=== PATIENT | female | born 1985 | race Caucasian/White ===

== ENCOUNTER 2016-06-07 15:17 | Emergency (ER) | payer OTHER ==
[~2016-06-07] VITALS: Ht 175.3 cm; Wt 72.6 kg
[2016-06-07 15:27] VITALS: BP 141/82
[2016-06-07] MEDS ORDERED: clonazePAM 1 MG TABLET PO ONE (16:30)
[2016-06-07] MEDS ORDERED: clonazePAM 1 MG TABLET ONE (16:38)
== END 2016-06-07 17:33 | disposition home or self-care (01) ==
LOC: ER 15:19
DX: F41.9 Anxiety disorder, unspecified (principal); F13.239 Sedative, hypnotic or anxiolytic dependence with withdrawal, unspecified; F32.9 Major depressive disorder, single episode, unspecified
CPT/HCPCS: 93005; 99284; A4606; Z7610

== ENCOUNTER 2021-01-24 13:31 | Inpatient (IN) | payer OTHER ==
[~2021-01-24] VITALS: Ht 160 cm; Wt 65.8 kg
--- NOTE | 2021-01-24 13:31 | NUR ---
PT BIB SELF C/O BILATERAL LOWER EXTREMITY SWELLING FOR 1 MONTH. PT IS AAOX4, NOT IN RESPIRATORY DISTRESS, HOOKED TO PLANT SENIOR MANAGER, KEPT RESTED AND COMFORTABLE. WILL CONTINUE TO MONITOR.
--- NOTE | 2021-01-24 13:50 | NUR ---
IV LINE ESTABLISHED BLOOD DRAWN AND SENT TO LAB.
--- NOTE | 2021-01-24 14:12 | NUR ---
AT BEDSIDE FOR EVAL.
--- NOTE | 2021-01-24 14:25 | NUR ---
URINE SPECIMEN COLLECTED AND SENT TO LAB.
[2021-01-24 14:47] LABS: BASOPHILS # (AUTO) 0.1 K/uL (0.0-0.2); BASOPHILS % (AUTO) 1.2 % (0.0-2.0); HEMATOCRIT 37 % (33-45); HEMOGLOBIN 11.2 g/dL (11.5-14.8); LYMPHOCYTES # (AUTO) 1.1 K/uL (0.8-4.8); LYMPHOCYTES % (AUTO) 11.1 % (20.0-44.0); MEAN CORPUSCULAR HGB CONC 30 g/dl (31.0-36.0); MEAN CORPUSCULAR VOLUME 69 fL (82-100); MONOCYTES # (AUTO) 0.7 K/uL (0.1-1.30); MONOCYTES % (AUTO) 7.1 % (2.0-12.0); NEUTROPHILS # (AUTO) 7.8 K/uL (1.8-8.9); NEUTROPHILS % (AUTO) 79.6 % (43.0-81.0); PLATELET COUNT (AUTO) 488 K/uL (150-450); RED BLOOD CELL COUNT(AUTO) 5.39 MIL/uL (4.0-5.2); WHITE BLOOD COUNT (AUTO) 9.8 K/uL (4.3-11.0)
[2021-01-24 14:53] LABS: BILIRUBIN,URINE SMALL (NEGATIVE); COLOR,URINE YELLOW (YELLOW); LEUKOCYTE ESTERASE ,URINE Trace (NEGATIVE); NITRITE, URINE Negative (NEGATIVE); PH,URINE 6.5 (5.0-8.0); PROTEIN,URINE >=300 mg/dl (NEGATIVE); UGLUCOSE Negative (NEGATIVE)
[2021-01-24 15:12] LABS: BACTERIA,URINE 2+ /HPF (None Seen); MUCUS,URINE Moderate /LPF (None Seen); SQUAMOUS EPITHELIAL CELL,UR Many /HPF (None Seen)
--- NOTE | 2021-01-24 15:13 | NUR ---
DIRECTOR GLOBAL DEVELOPMENT AT BEDSIDE FOR US.
[2021-01-24 15:14] LABS: CALCIUM, SERUM 8.4 mg/dL (8.5-10.1); CREATININE 1.4 mg/dL (0.6-1.3); POTASSIUM 3.1 mmol/L (3.5-5.1)
[2021-01-24 15:27] LABS: ALBUMIN 2.8 g/dL (3.4-5.0); BILIRUBIN,DIRECT 0.2 mg/dL (0.0-0.2); BILIRUBIN,TOTAL 0.5 mg/dL (0.2-1.0); TOTAL PROTEIN, SERUM 6.7 g/dL (6.4-8.2)
[2021-01-24] MEDS ORDERED: POTASSIUM CHLORIDE 20 MEQ TAB.PRT.SR PO ONE ×2 (15:30→15:35)
[2021-01-24] MEDS ORDERED: Magnesium 1 GM/2 ML VIAL IV ONE (15:30)
[2021-01-24] MEDS ORDERED: Magnesium 1GM/D5W 100ML PREMIX 200 ML IV ONE (15:35)
[2021-01-24] MEDS ORDERED: ASPIRIN 325 MG TABLET ONE (15:36)
[2021-01-24] MEDS ORDERED: ASPIRIN 325 MG TABLET PO ONE (16:00)
[2021-01-24] MEDS ORDERED: Magnesium 1GM/D5W 100ML PREMIX PIGGYBACK IV ONE (16:00)
--- NOTE | 2021-01-24 16:25 | NUR ---
COVID SPECIMEN OBTAINED AND SENT TO LAB.
--- NOTE | 2021-01-24 16:47 | NUR ---
MOVE SHEET TURNED IN.
[2021-01-24] MEDS ORDERED: hydrALAZINE HCL IV 20 MG VIAL ONE (18:43)
[2021-01-24 19:00] LABS: EOSINOPHILS % (MANUAL) 1 % (0-4); LYMPHOCYTES % (MANUAL) 4 % (16-48); MONOCYTES % (MANUAL) 4 % (0-11.0); NEUTROPHILS % (MANUAL) 91 (42-76)
[2021-01-24] MEDS ORDERED: hydrALAZINE HCL IV 20 MG VIAL IV ONE (19:00)
--- NOTE | 2021-01-24 19:16 | NUR ---
PAGED DR. YUAN. CURRENTLY ON THE PHONE WITH ER DOCTOR.
[2021-01-24] MEDS ORDERED: hydrALAZINE HCL 10 MG TABLET PO PRN (20:30)
[2021-01-24] MEDS ORDERED: FUROSEMIDE 40 MG/4 ML VIAL IV ONE (20:30)
--- NOTE | 2021-01-24 20:52 | NUR ---
REPORT GIVEN TO RN FOR APOORVA
[2021-01-24 22:00] VITALS: BP 148/96
--- NOTE | 2021-01-24 22:11 | NUR ---
TELE/THREADER NOTE RECEIVED PT FROM Mary VIA LAZARO TO [phone], ACCOMPANIED BY ATTENDING PATHOLOGIST. DX: PERIPHERAL EDEMA. CC: BILATERAL LOWER EXTREMITIES EDEMA X1 MONTH, NOT TAKING BP MEDS. RESPIRATIONS EVEN/UNLABORED, ON ROOM AIR. BLE EDEMA FROM THIGH TO FT, PITTING +2. PT STATES IT'S ONLY PAINFUL WHEN TOUCHED, OTHERWISE, SHE DENIES ANY PAIN AT THIS TIME. PT AMBULATED TO BR TO VOID. STEADY GAIT. PT ORIENTED TO ROOM, STAFF AND POLICIES. BELONGINGS CHECKED. CONNECTED TO TELE MONITOR, READING SINUS TACH, HR 119. PT IN NO ACUTE DISTRESS. SAFETY MEASURES IN PLACE, BED IN LOWEST LOCKED POSITION S/R UP X2, CALL LIGHT WITHIN REACH. WILL CONT TO MONITOR.
[2021-01-24] MEDS: ACETAMINOPHEN 325 MG TABLET PO PRN (22:29)
[2021-01-24] MEDS: CARVEDILOL 6.25 MG TABLET PO SCH (22:30)
[2021-01-24 22:46] VITALS: BP 148/96
--- NOTE | 2021-01-24 23:17 | NUR ---
RN NOTE RM CHANGE TO [id number]
[2021-01-25] VITALS: BP 106/59
[2021-01-25] MEDS: ZOLPIDEM TARTRATE 5 MG TABLET PO PRN ×2 (03:13→23:10)
[2021-01-25 04:00] VITALS: BP 120/75
[2021-01-25 06:22] LABS: CALCIUM, SERUM 7.8 mg/dL (8.5-10.1); CREATININE 1.2 mg/dL (0.6-1.3); POTASSIUM 3.3 mmol/L (3.5-5.1)
[2021-01-25 06:26] LABS: ALBUMIN 2.3 g/dL (3.4-5.0); BILIRUBIN,TOTAL 0.3 mg/dL (0.2-1.0); MAGNESIUM 1.6 mg/dL (1.8-2.4); TOTAL PROTEIN, SERUM 5.6 g/dL (6.4-8.2)
[2021-01-25 06:28] LABS: BASOPHILS # (AUTO) 0.1 K/uL (0.0-0.2); BASOPHILS % (AUTO) 1.7 % (0.0-2.0); EOSINOPHILS % (AUTO) 1.8 % (0.0-6.0); HEMATOCRIT 32 % (33-45); HEMOGLOBIN 9.5 g/dL (11.5-14.8); LYMPHOCYTES # (AUTO) 0.8 K/uL (0.8-4.8); LYMPHOCYTES % (AUTO) 11.1 % (20.0-44.0); MEAN CORPUSCULAR HGB CONC 30 g/dl (31.0-36.0); MEAN CORPUSCULAR VOLUME 71 fL (82-100); MONOCYTES # (AUTO) 0.8 K/uL (0.1-1.30); MONOCYTES % (AUTO) 11.2 % (2.0-12.0); NEUTROPHILS % (AUTO) 74.2 % (43.0-81.0); PLATELET COUNT (AUTO) 380 K/uL (150-450); WHITE BLOOD COUNT (AUTO) 6.8 K/uL (4.3-11.0)
--- NOTE | 2021-01-25 06:51 | NUR ---
TELE/RN CLOSING NOTE PT RESTING IN BED, EASILY AROUSABLE TO STIMULI. DENIES PAIN/DISCOMFORT. NO SOB. TELE MONITOR READING SR, HR 97. NO ACUTE EVENTS DURING THE NIGHT. SAFETY MEASURES MAINTAINED. ALL NEEDS ATTENDED TO.
[2021-01-25 07:50] LABS: LYMPHOCYTES % (MANUAL) 15 % (16-48); MONOCYTES % (MANUAL) 8 % (0-11.0); NEUTROPHILS % (MANUAL) 77 (42-76)
--- NOTE | 2021-01-25 07:55 | NUR ---
TUB WASH OPERATOR OPENING NOTES RECEIVED PATIENT IN BED ALERT/ORIENTED X 4.NOT IN ANY RESPIRATORY DISTRESS.DENIES PAIN AND DISCOMFORT AT THIS TIME.EDEMA ON BLE'S SUBSIDING AND PATIENT VERVALIZED THAT IT LOOKS BETTER AT THIS TIME.WE WILL CONTINUE TO MONITOR
[2021-01-25] MEDS: CARVEDILOL 6.25 MG TABLET PO SCH ×2 (08:33→16:16)
[2021-01-25] MEDS: POTASSIUM CHLORIDE 20 MEQ TAB.PRT.SR PO SCH ×4 (08:35→11:12)
[2021-01-25] MEDS: ENOXAPARIN SODIUM 40 MG/0.4 ML DISP.SYRIN SQ SCH (08:40)
[2021-01-25] MEDS: FUROSEMIDE 40 MG/4 ML VIAL IV SCH ×3 (08:45→16:15)
[2021-01-25 08:57] LABS: IRON, SERUM 13 ug/dl (50-175); TOTAL IRON BINDING CAPACITY 433 ug/dl (250-450)
[2021-01-25] MEDS ORDERED: POTASSIUM CHLORIDE 20 MEQ TAB.PRT.SR PO ONE ×2 (09:00→11:30)
[2021-01-25 09:10] LABS: FERRITIN 17 ng/mL (8-388)
[2021-01-25 09:51] VITALS: BP 135/92
[2021-01-25] MEDS ORDERED: MAGNESIUM OXIDE 400 MG TABLET PO ONE (10:30)
[2021-01-25] MEDS ORDERED: Magnesium 1GM/D5W 100ML PREMIX 100 ML IV SCH (11:30)
[2021-01-25 12:00] VITALS: BP 133/78
[2021-01-25] MEDS: LOSARTAN POTASSIUM 50 MG TABLET PO SCH (12:21)
[2021-01-25] MEDS: CEFTRIAXONE 1 G in IV D5W 50 ML IV SCH (13:19)
[2021-01-25] MEDS: SOD FERRIC GLUC 125 MG in IV NS 0.9% 100 ML IV SCH (14:52)
[2021-01-25 16:11] VITALS: BP 119/71
--- NOTE | 2021-01-25 19:15 | NUR ---
LIFE EDUCATOR OPENING NOTES: RECEIVED PATIENT IN BED, AWAKE, A/O X4. NO S/S OF DISTRESS NOTED. NO COMPLAIN OF PAIN. CALL LIGHT WITHIN REACH. BED IN LOWEST AND LOCKED POSITION.
--- NOTE | 2021-01-25 19:22 | NUR ---
TACKING MACHINE OPERATOR CLOSING NOTES: PATIENT IN BED,AWAKE,NOT IN ANY DISTRESS.CONTINENT BOTH BOWEL AND BLADDER AND AMBULATES TO THE BATHROOM,ALL NEEDS MET,MD'S ORDER GIVEN.DENIES PAIN THIS SHIFT.KEPT COMFORTABLE THROUGHOUT THIS SHIFT.SAFETY MEASURES MAINTAINED.CALL LIGHT WITHIN REACH.WILL ENDORSE CONTINUITY OF CARE TO INCOMING SHIFT.
[2021-01-25 20:45] VITALS: BP 130/82
[2021-01-26 00:17] VITALS: BP 132/79
[2021-01-26 04:00] VITALS: BP 135/77
[2021-01-26 06:46] LABS: BASOPHILS # (AUTO) 0.1 K/uL (0.0-0.2); BASOPHILS % (AUTO) 1.4 % (0.0-2.0); EOSINOPHILS % (AUTO) 2.5 % (0.0-6.0); HEMATOCRIT 34 % (33-45); HEMOGLOBIN 10.4 g/dL (11.5-14.8); LYMPHOCYTES # (AUTO) 0.9 K/uL (0.8-4.8); LYMPHOCYTES % (AUTO) 13.3 % (20.0-44.0); MEAN CORPUSCULAR HGB CONC 31 g/dl (31.0-36.0); MEAN CORPUSCULAR VOLUME 70 fL (82-100); MONOCYTES # (AUTO) 0.9 K/uL (0.1-1.30); MONOCYTES % (AUTO) 13.9 % (2.0-12.0); NEUTROPHILS # (AUTO) 4.7 K/uL (1.8-8.9); NEUTROPHILS % (AUTO) 68.9 % (43.0-81.0); PLATELET COUNT (AUTO) 445 K/uL (150-450); RED BLOOD CELL COUNT(AUTO) 4.89 MIL/uL (4.0-5.2); WHITE BLOOD COUNT (AUTO) 6.8 K/uL (4.3-11.0)
--- NOTE | 2021-01-26 07:00 | NUR ---
TRUCK DRIVER TEAMSTER OPENING NOTES: PATIENT IN BED AWAKE,ALERT/ORIENTED X 4.NOT IN ANY DISTRESS,DENIES PAIN AND DISCOMFORT,CALL LIGHT WITHIN REACH. EDEMA BLE'S STILL NOTED,CONTINUE ON DAILY WEIGHTS WHICH IS TRENDING LOW. ON MEDICATIONS ORDERED AND WILL CONTINUE TO MONITOR.
[2021-01-26 07:05] LABS: ALBUMIN 2.4 g/dL (3.4-5.0); BILIRUBIN,TOTAL 0.3 mg/dL (0.2-1.0); CALCIUM, SERUM 8.5 mg/dL (8.5-10.1); CREATININE 1.2 mg/dL (0.6-1.3); MAGNESIUM 1.7 mg/dL (1.8-2.4); PHOSPHORUS 4.2 mg/dL (2.5-4.9); POTASSIUM 4.1 mmol/L (3.5-5.1); TOTAL PROTEIN, SERUM 5.8 g/dL (6.4-8.2)
[2021-01-26 08:00] VITALS: BP 139/109
[2021-01-26] MEDS: Magnesium 1GM/D5W 100ML PREMIX 100 ML IV SCH ×2 (08:30→09:30)
[2021-01-26] MEDS: LOSARTAN POTASSIUM 50 MG TABLET PO SCH (08:33)
[2021-01-26] MEDS: CARVEDILOL 6.25 MG TABLET PO SCH ×2 (08:34→16:31)
[2021-01-26] MEDS: ENOXAPARIN SODIUM 40 MG/0.4 ML DISP.SYRIN SQ SCH (08:35)
[2021-01-26] MEDS: POTASSIUM CHLORIDE 20 MEQ TAB.PRT.SR PO SCH ×2 (08:53→11:13)
[2021-01-26] MEDS: FUROSEMIDE 40 MG/4 ML VIAL IV SCH ×3 (09:38→16:27)
[2021-01-26] MEDS: METOPROLOL TARTRATE INJ 5 MG/5 ML AMPUL IVP PRN ×10 (11:50→14:35)
[2021-01-26 12:00] VITALS: BP 114/66
[2021-01-26] MEDS ORDERED: Magnesium 1GM/D5W 100ML PREMIX 100 ML IV SCH (12:00)
[2021-01-26] MEDS ORDERED: METOPROLOL TARTRATE INJ 5 MG/5 ML AMPUL ONE ×2 (13:34→14:12)
[2021-01-26] MEDS ORDERED: CT SWABBABLE VALVE TRANS SET 1 EA INFUS.SET MC ONE (13:34)
[2021-01-26] MEDS ORDERED: IOHEXOL-350 100 ML VIAL IV ONE (13:34)
[2021-01-26] MEDS ORDERED: NITROGLYCERIN 0.4 MG/TAB BOTTLE ONE (13:34)
[2021-01-26] MEDS ORDERED: IV NS 0.9% 250 ML IV ONE (13:35)
[2021-01-26] MEDS ORDERED: NITROGLYCERIN 0.4 MG/TAB BOTTLE SL ONE (14:00)
--- NOTE | 2021-01-26 14:37 | NUR ---
pt consented to CTA heart with contrast; all questions answered, denies CP or SOB; given Metoprolol 5mg IVP every 5 minutes x 10 doses and NTG SL 0.04 mg; Tolerated procedure; VSS; report given to floor RN at bedside; sent back to floor via wheelchair
[2021-01-26] MEDS: CEFTRIAXONE 1 G in IV D5W 50 ML IV SCH (15:13)
[2021-01-26] MEDS: SOD FERRIC GLUC 125 MG in IV NS 0.9% 100 ML IV SCH (15:14)
--- NOTE | 2021-01-26 15:15 | NUR ---
FERRLICET GIVEN LATE,PATIENT WENT FOR MRI
[2021-01-26] MEDS: ACETAMINOPHEN 325 MG TABLET PO PRN (15:42)
[2021-01-26 16:00] VITALS: BP 137/84
--- NOTE | 2021-01-26 19:10 | NUR ---
WEBMETHODS CONSULTANT OPENING NOTES: RECEIVED PATIENT IN BED, AWAKE, A/O X4. NO S/S OF DISTRESS NOTED. NO COMPLAIN OF PAIN. CALL LIGHT WITHIN REACH. BED IN LOWEST AND LOCKED POSITION. SINUS 87.
[2021-01-26 20:04] VITALS: BP 123/80
[2021-01-26] MEDS: ZOLPIDEM TARTRATE 5 MG TABLET PO PRN (23:32)
[2021-01-27] VITALS (8 sets, daily range): BP systolic 103–142; BP diastolic 65–96
--- NOTE | 2021-01-27 00:42 | NUR ---
NPO POST MN,PATIENT AWARE. SIGN PLACED IN THE DOOR.
[2021-01-27 06:29] LABS: BASOPHILS # (AUTO) 0.1 K/uL (0.0-0.2); BASOPHILS % (AUTO) 1.2 % (0.0-2.0); EOSINOPHILS % (AUTO) 2.3 % (0.0-6.0); HEMATOCRIT 33 % (33-45); LYMPHOCYTES # (AUTO) 0.9 K/uL (0.8-4.8); LYMPHOCYTES % (AUTO) 9.6 % (20.0-44.0); MEAN CORPUSCULAR HGB CONC 30 g/dl (31.0-36.0); MEAN CORPUSCULAR VOLUME 70 fL (82-100); MONOCYTES # (AUTO) 1.2 K/uL (0.1-1.30); MONOCYTES % (AUTO) 13.2 % (2.0-12.0); NEUTROPHILS # (AUTO) 6.8 K/uL (1.8-8.9); NEUTROPHILS % (AUTO) 73.7 % (43.0-81.0); PLATELET COUNT (AUTO) 415 K/uL (150-450); RED BLOOD CELL COUNT(AUTO) 4.68 MIL/uL (4.0-5.2); WHITE BLOOD COUNT (AUTO) 9.2 K/uL (4.3-11.0)
[2021-01-27 06:50] LABS: ALBUMIN 2.4 g/dL (3.4-5.0); BILIRUBIN,TOTAL 0.3 mg/dL (0.2-1.0); CALCIUM, SERUM 8.7 mg/dL (8.5-10.1); MAGNESIUM 1.8 mg/dL (1.8-2.4); PHOSPHORUS 5.1 mg/dL (2.5-4.9); POTASSIUM 3.9 mmol/L (3.5-5.1)
--- NOTE | 2021-01-27 06:55 | NUR ---
weight= 145.7LBS.
--- NOTE | 2021-01-27 07:10 | NUR ---
WHANAU SUPPORT WORKER OPENING NOTES RECEIVED PATIENT IN BED AWAKE, ALERT/ORIENTED X 4. NOT IN ANY DISTRESS, DENIES PAIN AND DISCOMFORT AT THIS TIME. PATIENT IS ON ROOM AIR WITH EQUAL AND UNLABORED BREATHING. NOTED WITH BLE +2 EDEMA. PATIENT KEPT ON NPO FOR PROCEDURE SCHEDULED TODAY. WITH LEFT FOREARM G22 AND RIGHT AC G 18 BOTH ON SALINE LOCK. SAFETY MNEASURES ENSURED WITH BED AT LOWEST LOCKED POSITION, SIDERAILS RAISED. CALL LIGHT AND TABLE WITHIN REACH. WILL CONTINUE TO MONITOR PATIENT.
[2021-01-27] MEDS: POTASSIUM CHLORIDE 20 MEQ TAB.PRT.SR PO SCH ×3 (08:52→12:23)
[2021-01-27] MEDS: LOSARTAN POTASSIUM 50 MG TABLET PO SCH (08:52)
[2021-01-27] MEDS: FUROSEMIDE 40 MG/4 ML VIAL IV SCH ×3 (08:52→16:50)
[2021-01-27] MEDS: CARVEDILOL 6.25 MG TABLET PO SCH ×2 (08:53→17:02)
[2021-01-27] MEDS: ENOXAPARIN SODIUM 40 MG/0.4 ML DISP.SYRIN SQ SCH (09:01)
[2021-01-27] MEDS ORDERED: LORAZEPAM INJ 2 MG/ML VIAL IV STA (09:18)
--- NOTE | 2021-01-27 10:00 | NUR ---
LEG BREAKER NOTE PATIENT FOR MRI SCHEDULED WITH ORDER TO GIVE ATIVAN ONE TIME FOR ANXIETY.
--- NOTE | 2021-01-27 10:45 | NUR ---
MANUFACTURING PRODUCTION MANAGER NOTE PATIENT CAME BACK FROM MRI. IN STABLE CONDITION.
[2021-01-27] MEDS: SPIRONOLACTONE 25 MG TABLET PO SCH (10:55)
[2021-01-27] MEDS: CEFTRIAXONE 1 G in IV D5W 50 ML IV SCH (13:33)
[2021-01-27] MEDS: SOD FERRIC GLUC 125 MG in IV NS 0.9% 100 ML IV SCH (14:19)
[2021-01-27] MEDS: ACETAMINOPHEN 325 MG TABLET PO PRN (16:24)
--- NOTE | 2021-01-27 18:48 | NUR ---
SEAFOOD PACKER CLOSING NOTES PATIENT IN BED AWAKE, ALERT/ORIENTED X 4. NOT IN ANY DISTRESS, DENIES PAIN AND DISCOMFORT AT THIS TIME. PATIENT IS ON ROOM AIR WITH EQUAL AND UNLABORED BREATHING. NOTED WITH BLE +2 EDEMA. WITH LEFT FOREARM G22 AND RIGHT AC G 18 BOTH ON SALINE LOCK. SAFETY MNEASURES ENSURED WITH BED AT LOWEST LOCKED POSITION, SIDERAILS RAISED. CALL LIGHT AND TABLE WITHIN REACH. WILL ENDORSE PATIENT FOR CONTINUITY OF CARE.
--- NOTE | 2021-01-27 19:30 | NUR ---
MATERIAL ATTENDANT OPENING NOTES PATIENT AWAKE IN BED, ALERT/ORIENTED X 4, PT ABLE TO MAKE NEEDS KNOWN. PT DENIES PAIN OR DISCOMFORT AT THIS TIME. PT STABLE ON RA, NO S/S OF DISTRESS OR SOB NOTED, BREATHING EVEN AND UNLABORED. IV ACCESS ON LEFT FOREARM #22G AND RIGHT AC #18G BOTH INTACT AND SALINE LOCKED. PATIENT IS AMBULATORY WITH STEADY GAIT. REMINDED PATIENT OF STRICT I & O'S. SAFETY MEASURES IN PLACE: CALL LIGHT AND TABLE WITHIN REACH, BED LOCKED IN LOW POSITION, SIDE RAILS UP X 2. WILL CONTINUE TO MONITOR PATIENT Addendum: 01/27/21 at 2011 by ADALBERTO JONES RN PT ON EXTERNAL MECHANICAL SYSTEMS ENGINEER READING SINUS RHYTHM, HR: 87
[2021-01-27] MEDS: ZOLPIDEM TARTRATE 5 MG TABLET PO PRN (22:34)
[2021-01-28 00:07] VITALS: BP 111/60
[2021-01-28 04:00] VITALS: BP 121/81
[2021-01-28 06:43] LABS: BASOPHILS # (AUTO) 0.1 K/uL (0.0-0.2); EOSINOPHILS % (AUTO) 2.2 % (0.0-6.0); HEMATOCRIT 32 % (33-45); HEMOGLOBIN 9.9 g/dL (11.5-14.8); LYMPHOCYTES # (AUTO) 0.8 K/uL (0.8-4.8); LYMPHOCYTES % (AUTO) 9.3 % (20.0-44.0); MEAN CORPUSCULAR HGB CONC 31 g/dl (31.0-36.0); MEAN CORPUSCULAR VOLUME 70 fL (82-100); MONOCYTES % (AUTO) 11.6 % (2.0-12.0); NEUTROPHILS # (AUTO) 6.4 K/uL (1.8-8.9); NEUTROPHILS % (AUTO) 75.9 % (43.0-81.0); PLATELET COUNT (AUTO) 430 K/uL (150-450); RED BLOOD CELL COUNT(AUTO) 4.62 MIL/uL (4.0-5.2); WHITE BLOOD COUNT (AUTO) 8.5 K/uL (4.3-11.0)
--- NOTE | 2021-01-28 07:00 | NUR ---
UNDERGROUND CONDUIT INSTALLER NOTES PATIENT AWAKE IN BED, ALERT/ORIENTED X 4, NO SIGNIFICANT CHANGES THROUGHOUT SHIFT. PATIENT SLEPT THROUGH THE NIGHT. PT STABLE ON RA, NO S/S OF DISTRESS OR SOB NOTED, BREATHING EVEN AND UNLABORED. MEDICATIONS GIVEN ORDERED. SAFETY MEASURES IN PLACE: CALL LIGHT WITHIN REACH, SIDE RAILS UP X 2, BED LOCKED IN LOW POSITION. WILL ENDORSE TO DAY SHIFT NURSE FOR CONTINUITY OF CARE
--- NOTE | 2021-01-28 07:21 | NUR ---
BPM ARCHITECT OPENING NOTE PATIENT RECEIVED AWAKE, SITTING UP IN BED. PATIENT IS BREATHING W/O S/S OF DISTRESS; SKIN IS CLEAN AND INTACT. IV LFA #22 G SL; RAC #18 G SL PATENT. PATIENT APPEARS IN GOOD SPIRITS. PATIENT WILL BE MONITORED THROUGHOUT SHIFT FOR ALL NEEDS.
[2021-01-28 07:29] LABS: ALBUMIN 2.3 g/dL (3.4-5.0); BILIRUBIN,TOTAL 0.3 mg/dL (0.2-1.0); CALCIUM, SERUM 8.2 mg/dL (8.5-10.1); CREATININE 1.1 mg/dL (0.6-1.3); MAGNESIUM 1.9 mg/dL (1.8-2.4); PHOSPHORUS 4.6 mg/dL (2.5-4.9); TOTAL PROTEIN, SERUM 6.1 g/dL (6.4-8.2)
[2021-01-28 08:00] VITALS: BP 142/98
[2021-01-28] MEDS: FUROSEMIDE 40 MG/4 ML VIAL IV SCH ×2 (08:27→12:10)
[2021-01-28] MEDS: CARVEDILOL 6.25 MG TABLET PO SCH (08:27)
[2021-01-28] MEDS: POTASSIUM CHLORIDE 20 MEQ TAB.PRT.SR PO SCH ×3 (08:28→10:51)
[2021-01-28] MEDS: LOSARTAN POTASSIUM 50 MG TABLET PO SCH (08:28)
[2021-01-28] MEDS: SPIRONOLACTONE 25 MG TABLET PO SCH (08:28)
[2021-01-28] MEDS: ENOXAPARIN SODIUM 40 MG/0.4 ML DISP.SYRIN SQ SCH (08:29)
[2021-01-28] MEDS ORDERED: SPIR25TA6 PO (10:15)
[2021-01-28] MEDS ORDERED: CARV6.252 PO (10:15)
[2021-01-28] MEDS ORDERED: LOSA50TA39 PO (10:15)
[2021-01-28] MEDS ORDERED: FURO-144 PO (10:15)
[2021-01-28 12:00] VITALS: BP 97/70
[2021-01-28] MEDS: CEFTRIAXONE 1 G in IV D5W 50 ML IV SCH (12:10)
--- NOTE | 2021-01-28 14:10 | NUR ---
SALES AND MERCHANDISING ASSOCIATEHARP REGULATOR NOTE PATIENT WAS DC'd TO HOME. SHE HAD TRANSPORTATION HOME BY FAMILY. PATIENT IS STABLE, A/Ox4; SKIN CLEAN AND INTACT. IV LINES REMOVED AND PRESSURE DRESSINGS APPLIED; NO BLEEDING NOTED. IV CATH TIP WAS INTACT. WRISTBAND REMOVED. PATIENT WAS INSTRUCTED TO F/U WITH PCP AND WARP YARN SORTER. PATIENT VERBALIZED UNDERSTANDING. BELONGINGS ACCOUNTED FOR, AND BELONGINGS FORM SIGNED. PATIENT LEFT IN STABLE CONDITION.
[2021-01-28] MEDS ORDERED: GADOTERATE MEGLUMINE 10 MMOL/20 ML VIAL IV ONE (14:29)
== END 2021-01-28 14:30 | disposition home or self-care (01) | DRG 561 ==
LOC: ER 13:37 → TELE 20:39
PROVIDERS: ADMIT Internal Medicine; ATTEND Internal Medicine
DX: O99.43 Diseases of the circulatory system complicating the puerperium (principal); I21.4 Non-ST elevation (NSTEMI) myocardial infarction; I50.23 Acute on chronic systolic (congestive) heart failure; N13.6 Pyonephrosis; I27.20 Pulmonary hypertension, unspecified; I42.0 Dilated cardiomyopathy; I13.0 Hypertensive heart and chronic kidney disease with heart failure and stage 1 through stage 4 chronic kidney disease, or unspecified chronic kidney disease; F31.9 Bipolar disorder, unspecified; F41.9 Anxiety disorder, unspecified; E83.42 Hypomagnesemia; E87.6 Hypokalemia; N39.0 Urinary tract infection, site not specified; D50.9 Iron deficiency anemia, unspecified; N18.9 Chronic kidney disease, unspecified; K57.30 Diverticulosis of large intestine without perforation or abscess without bleeding; Z91.14 Patient's other noncompliance with medication regimen; F10.21 Alcohol dependence, in remission; N27.0 Small kidney, unilateral; N28.1 Cyst of kidney, acquired; I70.0 Atherosclerosis of aorta
CPT/HCPCS: 36415; 71045-TC; 74183-TC; 75574; 76700-TC; 80048-TC; 80053-TC; 80076-TC; 81001; 82728-TC; 83540-TC; 83690-TC; 83735-TC; 83880; 84100-TC; 84443-TC; 84484-TC; 84703-TC; 85025-TC; 87081-TC; 87086-TC; 93307-TC; 93970-TC; A9575; C9803; G0378; J0360; J0696; J1650; J1940; J2060; J2916; J3475; J3490; J7030; J7040; J7050; J7060; Q9967

== ENCOUNTER 2021-12-09 20:54 | Emergency (ER) | payer OTHER ==
[~2021-12-09] VITALS: Ht 165.1 cm; Wt 77.1 kg
[~2021-12-09 20:54] MED LIST: CARV6.252 PO; FURO-144 PO; LOSA50TA39 PO; SPIR25TA6 PO
[2021-12-09 22:13] VITALS: BP 128/77
--- NOTE | 2021-12-09 22:16 | NUR ---
XRAY DONE AT BEDSIDE.
[2021-12-09] MEDS ORDERED: ACETAMINOPHEN 325 MG TABLET PO ONE (22:30)
[2021-12-09] MEDS ORDERED: ONDANSETRON 4 MG TAB.RAPDIS SL ONE (22:30)
[2021-12-09] MEDS ORDERED: ACETAMINOPHEN 325 MG TABLET ONE (22:33)
[2021-12-09] MEDS ORDERED: ONDANSETRON 4 MG TAB.RAPDIS ONE (22:34)
[2021-12-09] MEDS ORDERED: NAPR-1164 PO (22:58)
== END 2021-12-09 23:44 | disposition home or self-care (01) ==
LOC: ER 21:03
DX: S93.602A Unspecified sprain of left foot, initial encounter (principal); I10 Essential (primary) hypertension; F41.9 Anxiety disorder, unspecified; F31.9 Bipolar disorder, unspecified; Z79.899 Other long term (current) drug therapy; W22.8XXA Striking against or struck by other objects, initial encounter; Y93.89 Activity, other specified; Y92.89 Other specified places as the place of occurrence of the external cause; Y99.8 Other external cause status
CPT/HCPCS: 99284; 73610; 73630; Q0162

== ENCOUNTER 2021-12-19 16:39 | Emergency (ER) | payer OTHER ==
[~2021-12-19] VITALS: Ht 160 cm; Wt 77.1 kg
[~2021-12-19 16:39] MED LIST changes: +NAPR-1164 PO
--- NOTE | 2021-12-19 18:32 | NUR ---
x ray resulted, pt receving splint
[2021-12-19] MEDS ORDERED: ACETAMINOPHEN ES 500 MG TABLET ONE (19:54)
[2021-12-19] MEDS ORDERED: ACETAMINOPHEN ES 500 MG TABLET PO ONE (20:00)
[2021-12-19] MEDS ORDERED: IBUP-1957 PO (20:31)
--- NOTE | 2021-12-19 20:53 | NUR ---
Patient discharged to home in stable condition. Written and verbal after care instructions given. Patient verbalizes understanding of instruction.
--- NOTE | 2021-12-19 20:53 | NUR ---
CALLED FATHER TO NOTIFY OF PT BEING DISCHARGED PER PTS REQUEST.
[2021-12-19 22:13] VITALS: BP 121/84
== END 2021-12-19 22:14 | disposition home or self-care (01) ==
LOC: ER 16:42
DX: S82.434A Nondisplaced oblique fracture of shaft of right fibula, initial encounter for closed fracture (principal); S82.844A Nondisplaced bimalleolar fracture of right lower leg, initial encounter for closed fracture; I10 Essential (primary) hypertension; F41.9 Anxiety disorder, unspecified; F31.9 Bipolar disorder, unspecified; Z79.899 Other long term (current) drug therapy; W18.30XA Fall on same level, unspecified, initial encounter; Y93.89 Activity, other specified; Y92.89 Other specified places as the place of occurrence of the external cause; Y99.8 Other external cause status
CPT/HCPCS: 73590-TC; 73610-TC

== ENCOUNTER 2023-12-26 19:30 | Emergency (ER) | payer OTHER ==
[~2023-12-26] VITALS: Ht 160 cm; Wt 67.1 kg
[~2023-12-26 19:30] MED LIST changes: +IBUP-1957 PO
[2023-12-26 20:29] VITALS: BP 108/71; TEMP 98; O2SAT 96
[2023-12-26] MEDS ORDERED: CEPH-570 PO (21:38)
== END 2023-12-26 23:52 | disposition home or self-care (01) ==
LOC: ER 19:33
DX: L60.0 Ingrowing nail (principal); B35.1 Tinea unguium; I10 Essential (primary) hypertension; F31.9 Bipolar disorder, unspecified; F41.9 Anxiety disorder, unspecified